=== PATIENT | male | born 1960 | race Caucasian/White ===

== ENCOUNTER 2018-07-13 07:02 | Emergency (ER) | payer MEDICARE ==
[2018-07-13] MEDS ORDERED: METHYLPREDNISOLONE 125 MG INJ ONE (07:36)
[2018-07-13] MEDS ORDERED: ALBUTEROL 2.5 MG/3 ML NEB SOL ONE (07:37)
[2018-07-13] MEDS ORDERED: IPRATROPIUM BROM 0.5MG/2.5ML ONE (07:37)
[2018-07-13 07:50] LABS: Absolute Monocytes 1.1 K/uL (0.1-1.3); Absolute Neutrophil 7.5 K/uL (1.8-8.0); Basophils % 0.7 % (0-1.3); Eosinophils % 0.9 % (0-4.4); Lymphocytes % 25.5 % (15.3-44.8); MPV 11.1 fL (7.6-11.3); RBC Red Blood Cell Count 5.86 M/uL (4.33-5.43)
[2018-07-13 08:18] LABS: ALT/SGPT 41 U/L (12-78); AST/SGOT 38 U/L (15-37); Albumin 3.9 g/dL (3.4-5.0); Alkaline Phosphatase 82 U/L (45-117); BUN Blood Urea Nitrogen 14 mg/dL (7-18); Bicarbonate 22 mmol/L (21-32); Bilirubin Total 0.8 mg/dL (0.2-1.0); Glucose Level 115 mg/dL (74-106); Lipase 131 U/L (73-393); Magnesium 2.2 mg/dL (1.8-2.4); NT PRO-BNP 216 pg/mL (<125); Potassium 3.4 mmol/L (3.5-5.1); Protein, Total 8.9 g/dL (6.4-8.2); Sodium Level 138 mmol/L (136-145); Troponin (Emerg Dept Use Only) < 0.02 ng/mL (0.0-0.045)
--- NOTE | 2018-07-13 09:06 | ER ---
Nurse's Notes [facility] Name: Juan Gallardo Age: 58 yrs Sex: Male : 1960 Arrival Date: 07/13/2018 Time: 07:04 Bed 5 Private MD: Shon Waters E Diagnosis: Chronic obstructive pulmonary disease with (acute) exacerbation Presentation: 07/13 07:09 Presenting complaint: Patient states: I have been feeling SOB for the last month or la1 two, it's been this bad the whole time but I hate coming in. Transition of care: patient was not received from another setting of care. Onset of symptoms was July 13, 2018. Risk Assessment: Do you want to hurt yourself or someone else? Patient reports no desire to harm self or others. Initial Sepsis Screen: Does the patient meet any 2 criteria? No. Patient's initial sepsis screen is negative. Does the patient have a suspected source of infection? No. Patient's initial sepsis screen is negative. Care prior to arrival: None. 07:09 Method Of Arrival: Ambulatory la1 07:09 Acuity: CLEMENTE 3 la1 Triage Assessment: 07:42 Respiratory: the patient has moderate shortness of breath. la1 Historical: - Allergies: 07:10 No Known Allergies; la1 - PMHx: 07:10 COPD; HEP C; Hypertension; Myocardial infarction; la1 - Immunization history:: Adult Immunizations up to date. - Social history:: Smoking status: Patient uses tobacco products, smokes one pack cigarettes per day. - Ebola Screening: : No symptoms or risks identified at this time. Screenin:16 Abuse screen: Denies threats or abuse. Nutritional screening: No deficits noted. la1 Tuberculosis screening: No symptoms or risk factors identified. Fall Risk None identified. Assessment: 07:15 General: Appears in no apparent distress. Behavior is calm, cooperative. Pain: Denies la1 pain. Neuro: Level of Consciousness is awake, alert, obeys commands, Oriented to person, place, time, situation. Cardiovascular: Capillary refill < 3 seconds Patient's skin is warm and dry. Cardiovascular: Rhythm is sinus tachycardia. Respiratory: Airway is patent Respiratory effort is even, unlabored, Respiratory pattern is regular, symmetrical. Respiratory: Breath sounds are clear bilaterally. GI: No signs and/or symptoms were reported involving the gastrointestinal system. : No signs and/or symptoms were reported regarding the genitourinary system. 08:39 Reassessment: Patient appears in no apparent distress at this time. No changes from la1 previously documented assessment. Patient and/or family updated on plan of care and expected duration. Pain level reassessed. Patient is alert, oriented x 3, equal unlabored respirations, skin warm/dry/pink. Vital Signs: 07:10 BP 150 / 115; Pulse 113; Resp 20; Temp 98.5(O); Pulse Ox 96% on R/A; Weight 77.11 kg; la1 Height 5 ft. 9 in. (175.26 cm); Pain 0/10; 08:39 BP 156 / 114; Pulse 99; Resp 18; Pulse Ox 99% on R/A; la1 07:10 Body Mass Index 25.10 (77.11 kg, 175.26 cm) la1 ED Course: 07:04 Patient arrived in ED. es 07:04 Shon Waters MD is Private Physician. es 07:08 Haider Barry, GEREMIAS is Primary Nurse. la1 07:09 Jimy Cobian MD is Attending Physician. ps1 07:09 Triage completed. la1 07:10 Arm band placed on left wrist. la1 07:16 Call light in reach. Side rails up X 1. la1 07:16 No provider procedures requiring assistance completed. la1 07:42 Inserted saline lock: 22 gauge in right hand, using aseptic technique. Blood collected. la1 08:19 XRAY Chest Pa And Lat (2 Views) In Process Unspecified. EDMS 09:05 Shon Waters MD is Referral Physician. ps1 09:12 IV discontinued, intact, bleeding controlled, No redness/swelling at site. Pressure la1 dressing applied. Administered Medications: 07:41 Drug: SOLU-Medrol 125 mg Route: IVP; Site: right hand; la1 08:26 Follow up: Response: No adverse reaction la1 07:41 Drug: DuoNeb (3:1) (2.5 mg - 0.5 mg) 3 ml Route: Nebulizer; la1 08:25 Follow up: Response: Wheezing diminished la1 Outcome: 09:05 Discharge ordered by . ps1 09:12 Discharged to home ambulatory. la1 09:12 Condition: stable 09:12 Discharge instructions given to patient, Instructed on discharge instructions, follow up and referral plans. medication usage, Demonstrated understanding of instructions, follow-up care, medications, Prescriptions given X 2. 09:13 Patient left the ED. la1 Signatures: Dispatcher [employer] EDAnn Keys Lee RN RN la1 Jimy Cobian MD MD ps1 Corrections: (The following items were deleted from the chart) 07:42 07:16 Patient did not have IV access during this emergency room visit. la1 la1
--- NOTE | 2018-07-13 09:06 | EDPHYS ---
Physician Documentation [facility] Name: Juan Gallardo Age: 58 yrs Sex: Male : 1960 Arrival Date: 07/13/2018 Time: 07:04 Bed 5 Private MD: Shon Wtaers E ED Physician Jimy Cobian HPI: 07/13 07:26 This 58 yrs old Male presents to ER via Ambulatory with complaints of ps1 Shortness Of Breath. 07:26 patient has hx of COPD on Spiriva, Combivent, albuterol, anora presenting with ps1 worsening shortness of breath for [address] Martinez. States that he is still smoking. He has been a smoker for 40 years. Still having difficulty quitting but wants to. States that he has increased shortness of breath with deep inspiration. No fever. Has some wheezing. No hx of DVT or risk factors. . Historical: - Allergies: 07:10 No Known Allergies; la1 - PMHx: 07:10 COPD; HEP C; Hypertension; Myocardial infarction; la1 - Immunization history:: Adult Immunizations up to date. - Social history:: Smoking status: Patient uses tobacco products, smokes one pack cigarettes per day. - Ebola Screening: : No symptoms or risks identified at this time. ROS: 07:26 Constitutional: Negative for fever, chills, and weight loss, Eyes: Negative for injury, ps1 pain, redness, and discharge, ENT: Negative for injury, pain, and discharge, Cardiovascular: Negative for chest pain, palpitations, and edema, Abdomen/GI: Negative for abdominal pain, nausea, vomiting, diarrhea, and constipation, Back: Negative for injury and pain, MS/Extremity: Negative for injury and deformity, Skin: Negative for injury, rash, and discoloration, Neuro: Negative for headache, weakness, numbness, tingling, and seizure. 07:26 Respiratory: Positive for cough, wheezing, inspiratory. Exam: 07:26 Constitutional: This is a well developed, well nourished patient who is awake, alert, ps1 and in no acute distress. Head/Face: Normocephalic, atraumatic. Eyes: Pupils equal round and reactive to light, extra-ocular motions intact. Lids and lashes normal. Conjunctiva and sclera are non-icteric and not injected. ENT: Nares patent. No nasal discharge, no septal abnormalities noted. Tympanic membranes are normal and external auditory canals are clear. Oropharynx with no redness, swelling, or masses, exudates, or evidence of obstruction, uvula midline. Mucous membranes moist. Chest/axilla: Normal chest wall appearance and motion. Nontender with no deformity. No lesions are appreciated. Respiratory: Lungs have equal breath sounds bilaterally, clear to auscultation and percussion. No rales, rhonchi or wheezes noted. No increased work of breathing, no retractions or nasal flaring. Abdomen/GI: Soft, non-tender, with normal bowel sounds. No distension or tympany. No guarding or rebound. No evidence of tenderness throughout. Skin: Warm, dry with normal turgor. Normal color with no rashes, no lesions, and no evidence of cellulitis. MS/ Extremity: Pulses equal, no cyanosis. Neurovascular intact. Full, normal range of motion. Neuro: Awake and alert, GCS 15, oriented to person, place, time, and situation. Cranial nerves II-XII grossly intact. Sensory grossly intact. Psych: Awake, alert, with orientation to person, place and time. Behavior, mood, and affect are within normal limits. 07:26 Cardiovascular: Rate: tachycardic, Rhythm: regular, Pulses: no pulse deficits are appreciated. Vital Signs: 07:10 BP 150 / 115; Pulse 113; Resp 20; Temp 98.5(O); Pulse Ox 96% on R/A; Weight 77.11 kg; la1 Height 5 ft. 9 in. (175.26 cm); Pain 0/10; 08:39 BP 156 / 114; Pulse 99; Resp 18; Pulse Ox 99% on R/A; la1 07:10 Body Mass Index 25.10 (77.11 kg, 175.26 cm) la1 MDM: 07:26 Patient medically screened. ps1 09:06 Data reviewed: vital signs, nurses notes, lab test result(s), EKG, radiologic studies, ps1 and as a result, I will discharge patient. Counseling: I had a detailed discussion with the patient and/or guardian regarding: the historical points, exam findings, and any diagnostic results supporting the discharge/admit diagnosis, the presence of at least one elevated blood pressure reading (>120/80) during this emergency department visit, lab results, radiology results, the need for outpatient follow up, to return to the emergency department if symptoms worsen or persist or if there are any questions or concerns that arise at home, smoking cessation. 07/13 07:21 Order name: CBC with Diff; Complete Time: 08:31 ps1 07/13 07:21 Order name: Lipase; Complete Time: 08:31 ps1 07/13 07:21 Order name: Magnesium; Complete Time: 08:31 ps1 07/13 07:21 Order name: NT PRO-BNP; Complete Time: 08:31 ps1 07/13 07:21 Order name: Troponin (emerg Dept Use Only); Complete Time: 08:31 ps1 07/13 07:21 Order name: CMP; Complete Time: 08:31 ps1 07/13 07:21 Order name: XRAY Chest Pa And Lat (2 Views) ps1 07/13 07:21 Order name: EKG; Complete Time: 07:22 ps1 07/13 07:21 Order name: Cardiac monitoring; Complete Time: 07:42 ps1 07/13 07:21 Order name: EKG - Nurse/Tech; Complete Time: 07:42 ps1 07/13 07:21 Order name: IV Saline Lock; Complete Time: 07:42 ps1 07/13 07:21 Order name: Labs collected and sent; Complete Time: 07:42 ps1 07/13 07:21 Order name: O2 Per Protocol; Complete Time: 07:42 ps1 07/13 07:21 Order name: O2 Sat Monitoring; Complete Time: 07:42 ps1 EC:32 Rate is 84 beats/min. Rhythm is regular. QRS [place] is Normal. VA interval is normal. QRS ps1 interval is normal. QT interval is normal. Q waves are Old. T waves are Normal. No ST changes noted. Clinical impression: Abnormal EKG without significant change and No change from prior ECG. Interpreted by me. Administered Medications: 07:41 Drug: SOLU-Medrol 125 mg Route: IVP; Site: right hand; la1 08:26 Follow up: Response: No adverse reaction la1 07:41 Drug: DuoNeb (3:1) (2.5 mg - 0.5 mg) 3 ml Route: Nebulizer; la1 08:25 Follow up: Response: Wheezing diminished la1 Disposition: 07/13/18 09:05 Discharged to Home. Impression: Chronic obstructive pulmonary disease with (acute) exacerbation. - Condition is Stable. - Discharge Instructions: Chronic Obstructive Pulmonary Disease Exacerbation. - Prescriptions for Zithromax Z- Omer 250 mg Oral Tablet - take 1 tablet by ORAL route as directed for 5 days Day 1 - take two (2) tablets one time. Day 2, 3, 4 , 5 take one (1) tablet once daily.; 6 tablet. Medrol (Omer) 4 mg Oral Tablets, Dose Pack - take 1 tablet by ORAL route as directed - follow package instructions; 1 packet. - Medication Reconciliation Form, Thank You Letter, Antibiotic Education, Prescription Opioid Use form. - Follow up: Shon Waters MD; When: 2 - 3 days; Reason: Fever > 102 F, Further diagnostic work-up, Recheck today's complaints, Continuance of care, Re-evaluation by your physician. Follow up: Emergency Department; When: As needed; Reason: Fever > 102 F, Trouble breathing, Worsening of condition. - Problem is chronic. - Symptoms have worsened. Signatures: [facility] Haider Barry RN RN la1 Jimy Cobian MD MD ps1 Corrections: (The following items were deleted from the chart) 09:13 09:05 07/13/2018 09:05 Discharged to Home. Impression: Chronic obstructive pulmonary la1 disease with (acute) exacerbation. Condition is Stable. Forms are Medication Reconciliation Form, Thank You Letter, Antibiotic Education, Prescription Opioid Use. Follow up: Shon Waters; When: 2 - 3 days; Reason: Fever > 102 F, Further diagnostic work-up, Recheck today's complaints, Continuance of care, Re-evaluation by your physician. Follow up: Emergency Department; When: As needed; Reason: Fever > 102 F, Trouble breathing, Worsening of condition. Problem is chronic. Symptoms have worsened. ps1
[2018-07-13 09:19] VITALS: TEMP 98.5
[2018-07-13 09:20] VITALS: BP 156/114; O2SAT 99
--- NOTE | 2018-07-13 09:59 | RAD REPORT ---
EXAM DESCRIPTION: Stacey Kc (2 Views)07/13/2018 8:20 am CLINICAL HISTORY: sob COMPARISON: None FINDINGS: The lungs appear clear of acute infiltrate. The heart is normal size IMPRESSION: No acute abnormalities displayed
--- NOTE | 2018-07-14 06:09 | EKG ---
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
== END 2018-07-13 09:13 | disposition home or self-care (01) ==
LOC: ER 07:02
DX: J44.1 Chronic obstructive pulmonary disease with (acute) exacerbation (principal); I10 Essential (primary) hypertension; F17.210 Nicotine dependence, cigarettes, uncomplicated; I25.2 Old myocardial infarction
CPT/HCPCS: 93005; 85025; 36415; 83735; 84484; 83690; 80053; 83880; 71046; 94640; 96374; 99285; J2930